=== PATIENT | male | born 1955 | race Caucasian/White ===

== ENCOUNTER 2018-02-05 08:00 | Emergency (ER) | payer MEDICAID, OTHER ==
[~2018-02-05] VITALS: Ht 167.6 cm; Wt 93.2 kg
[~2018-02-05 08:00] MED LIST: ASPI81 PO; LISI1TAB9 PO
[2018-02-05] MEDS: SODIUM CHLORIDE 0.9% 1,000 ML IV ONE (09:23)
[2018-02-05] MEDS: KETOROLAC TROMETHAMINE 30 MG/ML VIAL IVP ONE (09:23)
[2018-02-05 09:28] LABS: BASOPHILS % (AUTO) 0.7 % (0.0-2.0); EOSINOPHILS % (AUTO) 0.4 % (1.0-6.0); HEMATOCRIT 47.5 % (41-53); HEMOGLOBIN 16.8 g/dL (13.5-17.5); LYMPHOCYTES # (AUTO) 0.7 K/uL (1.0-4.8); LYMPHOCYTES % (AUTO) 7.8 % (22.0-44.0); MEAN CORPUSCULAR HEMOGLOBIN 31.2 pg (26.0-34.0); MEAN CORPUSCULAR HGB CONC 35.4 G/dL (31.0-37.0); MEAN CORPUSCULAR VOLUME 88 fL (80-100); MONOCYTES # (AUTO) 0.4 K/uL (0.1-1.0); MONOCYTES % (AUTO) 4.4 % (2.0-9.0); NEUTROPHILS # (AUTO) 8.1 K/uL (1.8-7.7); PLATELET COUNT (AUTO) 227 K/uL (150-450); RED BLOOD CELL COUNT(AUTO) 5.39 MIL/uL (4.50-5.90); RED CELL DISTRIBUTION WIDTH 13.4 % (11.5-14.5)
[2018-02-05 09:29] LABS: NEUTROPHILS % (AUTO) 86.7 % (40.0-70.0)
[2018-02-05 09:37] LABS: ANION GAP 10 mmol/L (8-16); CALCIUM, TOTAL 9.2 mg/dL (8.8-10.5); CARBON DIOXIDE 27 mmol/L (22-29); CHLORIDE 104 mmol/L (98-107); CREATININE 1.15 mg/dL (0.60-1.30); GLOMERULAR FILTR. RATE CALC > 60 mL/min (>60); GLUCOSE,RANDOM 145 mg/dL (70-110); POTASSIUM 4.1 mmol/L (3.5-5.1); SODIUM SERUM 141 mmol/L (136-145); UREA NITROGEN, BLOOD 16 mg/dL (7-18)
[2018-02-05 09:42] LABS: ALANINE AMINOTRANSFERASE 65 U/L (12-78); ALBUMIN 3.9 g/dL (3.4-5.0); ALKALINE PHOSPHATASE 100 U/L (46-116); ASPARTATE AMINOTRANSFERASE 32 U/L (15-37); BILIRUBIN,TOTAL 0.6 mg/dL (0.1-1.0); TOTAL PROTEIN, SERUM 7.4 g/dL (6.4-8.2)
[2018-02-05 10:36] LABS: APPEARANCE,URINE CLEAR (CLEAR); BILIRUBIN,URINE NEGATIVE (NEGATIVE); GLUCOSE, URINE (UA) NEGATIVE (NEGATIVE); KETONES,URINE NEGATIVE (NEGATIVE); LEUKOCYTE ESTERASE ,URINE NEGATIVE (NEGATIVE); NITRATE,URINE NEGATIVE (NEGATIVE); OCCULT BLOOD,URINE LARGE (NEGATIVE); PROTEIN,URINE TRACE (NEGATIVE)
[2018-02-05 10:47] LABS: BACTERIA,URINE Rare /HPF (None Seen); RBC,URINE 26-50 /HPF (0-2)
[2018-02-05 10:49] LABS: MUCUS,URINE Rare LPF (None Seen); SQUAMOUS EPITHELIAL CELL,UR Rare /LPF (None Seen)
[2018-02-05 11:05] VITALS: BP 154/88
== END 2018-02-05 11:31 | disposition home or self-care (01) ==
LOC: EMS 08:01
DX: N28.89 Other specified disorders of kidney and ureter (principal); N20.9 Urinary calculus, unspecified; I10 Essential (primary) hypertension; F15.90 Other stimulant use, unspecified, uncomplicated
CPT/HCPCS: 36415; 74176; 80053; 81001; 85025; 96361; 96374; 99285; J1885; J7030